=== PATIENT | female | born 1990 | race Two or more races ===

== ENCOUNTER 2022-01-26 08:14 | Emergency (ER) | payer MEDICAID, OTHER ==
[2022-01-26 11:54] VITALS: BP 148/88
[2022-01-26] MEDS ORDERED: ACET-1158 PO (12:06)
[2022-01-26] MEDS ORDERED: CEPH-509 PO (12:06)
== END 2022-01-26 12:29 | disposition home or self-care (01) ==
LOC: ER 08:14
DX: S91.011A Laceration without foreign body, right ankle, initial encounter (principal); X58.XXXA Exposure to other specified factors, initial encounter; Y93.89 Activity, other specified; Y92.89 Other specified places as the place of occurrence of the external cause; Y99.8 Other external cause status
CPT/HCPCS: 73610